=== PATIENT | male | born 1980 | race Caucasian/White ===

== ENCOUNTER 2017-01-21 11:49 | Emergency (ER) | payer OTHER ==
[~2017-01-21] VITALS: Ht 185.4 cm; Wt 87.2 kg
[~2017-01-21 11:49] MED LIST: CLARITIN,ALAVAR10 MG PO; CLONAZEPAM0.5 MG PO; DEPAKOTE250 MG PO; DIPHENHYDRAMINE50 MG PO; GABAPENTIN400 MG PO; HYDRALAZINE HC100 MG PO; KLONOPIN1 MG PO; KLONOPIN2 MG PO; PERCOCET 5/31 TABLET PO; PRAZOSIN HCL2 MG PO; VIIBRYD20 MG PO; VIIBRYD40 MG PO; ZYPREXA10 MG PO
[2017-01-21 12:58] LABS: EOSINOPHIL (%) 0.2 % (0-5); HEMATOCRIT 43.4 % (38.0-50.0); IMMATURE GRANULOCYTE (%) 0.2 % (0.0-0.7); IMMATURE GRANULOCYTE COUNT 0.1 K/uL; LYMPHOCYTE COUNT 0.9 K/uL (1.0-2.8); MCH 30.8 PG (29.0-34.0); MCHC 34.6 G/DL (30.0-36.0); MCV 89.1 FL (86-99); MEAN PLAT.VOLUME 11.7 uM^3 (9.0-12.4); MONOCYTE (%) 5.6 % (3-12); MONOCYTE COUNT 0.3 K/uL (0-0.8); NEUTROPHIL (%) 77.5 % (45-76); NEUTROPHIL COUNT 4.5 K/uL (1.8-6.4); PLATELET COUNT 171 K/uL (156-360); RBC DIS.WIDTH-CV 12.3 % (11.8-14.6); RBC DIS.WIDTH-SD 38.9 % (39-53); RED BLOOD COUNT 4.87 M/uL (4.00-5.50); WHITE BLOOD COUNT 5.7 K/uL (4.1-10.2)
[2017-01-21 13:07] LABS: CHLORIDE 104 mEq/L (99-109); POTASSIUM 3.8 mEq/L (3.7-5.4); SODIUM 138 mEq/L (136-147)
[2017-01-21 13:09] LABS: GLUCOSE 118 mg/dL (70-99)
[2017-01-21 13:09] LABS: AMPHETAMINE NEGATIVE (500 ng/mL); BARBITURATES NEGATIVE (200 ng/mL); BENZODIAZEPINES NEGATIVE (150 ng/mL); COCAINE NEGATIVE (150 ng/mL); INTERNAL CONTROLS VALID? YES; METHADONE NEGATIVE (200 ng/mL); METHAMPHETAMINE NEGATIVE (500 ng/mL); OPIATES (MORPHINE) NEGATIVE (100 ng/mL); OXYCODONE NEGATIVE (100 ng/mL); PHENCYCLIDINE NEGATIVE (25 ng/mL); PROPOXYPHENE NEGATIVE (300 ng/mL); THC CANNABINOIDS NEGATIVE (50 ng/mL); TRICYCLIC ANTIDEPRESSANTS NEGATIVE (300 ng/mL)
[2017-01-21 13:10] LABS: ANION GAP 9 MEQ/L (2-14)
[2017-01-21 13:12] LABS: SERUM ETHYL ALCOHOL < 10 mg/dL
[2017-01-21 13:13] LABS: GFR ESTIMATE (CALCULATED) > 59 mL/min/
[2017-01-21 13:14] LABS: UREA NITROGEN (BUN) 12 mg/dL (9-23)
[2017-01-21] MEDS ORDERED: WELLBUTRIN SR100 MG PO (16:09)
[2017-01-21] MEDS ORDERED: ZYPREXA2.5 MG PO (16:09)
[2017-01-21 19:37] VITALS: BP 126/73
== END 2017-01-21 19:59 ==
LOC: EME 11:49
PROVIDERS: Emergency Medicine
DX: F32.9 Major depressive disorder, single episode, unspecified (principal); R45.851 Suicidal ideations; F43.10 Post-traumatic stress disorder, unspecified; F41.9 Anxiety disorder, unspecified; E78.5 Hyperlipidemia, unspecified; I10 Essential (primary) hypertension; Z87.891 Personal history of nicotine dependence
CPT/HCPCS: 80048; 85025; 90837; 99281; 99285; G0480